=== PATIENT | male | born 1960 | race Hispanic/Latino ===

== ENCOUNTER 2016-08-01 23:51 | Emergency (ER) | payer OTHER ==
[2016-08-02] MEDS ORDERED: SODIUM CHLORIDE 0.9% 1,000 ML ONE (00:34)
[2016-08-02] MEDS ORDERED: PHENYLEPHRINE .5% NA SPR 15 ML BTL ONE (00:39)
== END 2016-08-02 01:46 | disposition home or self-care (01) ==
LOC: ER 23:51
DX: R04.0 Epistaxis (principal); D68.32 Hemorrhagic disorder due to extrinsic circulating anticoagulants; T45.515A Adverse effect of anticoagulants, initial encounter; E11.22 Type 2 diabetes mellitus with diabetic chronic kidney disease; I12.9 Hypertensive chronic kidney disease with stage 1 through stage 4 chronic kidney disease, or unspecified chronic kidney disease; N18.9 Chronic kidney disease, unspecified; Z79.4 Long term (current) use of insulin; I25.5 Ischemic cardiomyopathy; Z87.891 Personal history of nicotine dependence
CPT/HCPCS: 36415; 80053; 85025; 85610; 85730